=== PATIENT | female | born 1935 | race Caucasian/White ===

== ENCOUNTER 2016-09-10 09:56 | Emergency (ER) | payer OTHER ==
--- NOTE | ~2016-09-10 | CR72 ---
[facility]. [facility] A Service of [facility] & [facility] RADIOLOGY TEXT RESULTS PATIENT: NINA MAYES LOCATION: SED : 37 UNIT #: [id number] AGE: [address]: Zeina Harris MD SEX: F ORDER DR: [id number] [address] [address] [id number] MR#: [id number] Acc #: [id number] NAME: NINA MAYES : 1935 SEX: F STUDY DATE/TIME: 09/10/2016 10:07 UNIT: SED ROOM: STUDY DESCRIPTION: CR Chest Single View Portable Attending Physician: Zeina Harris M.D. Ordering Physician: Physician Non-Staff Primary Care Physician: Geo Li M.D. MEDICAL IMAGING REPORT This report is preliminary unless electronic signature is present. EXAM Portable chest INDICATIONS 72-year-old female with shortness of breath and cough for 2 days. COMPARISON: 07/18/16 FINDINGS There is decreased inspiratory volume with increased atelectasis in the lung bases. There are increased interstitial markings. Heart size is stable. Postoperative changes of the spine. IMPRESSION There are increased nonspecific interstitial markings bilaterally. This may be infectious or inflammatory or could be an interstitial edema. Please correlate clinically. Dictated by... Too Gauthier M.D. THIS IS AN ELECTRONICALLY VERIFIED REPORT Too Gauthier M.D. at 09/10/2016 11:53 AM DARINEL/chris TD: 09/10/2016 11:18 JOB #: [id number] MEDICAL IMAGING REPORT Page 1 of 1
--- NOTE | ~2016-09-10 | CT16 ---
[facility] A Service of [facility] & [facility] RADIOLOGY TEXT RESULTS PATIENT: NINA MAYES LOCATION: SED : 37 UNIT #: [id number] AGE: [address]: Zeina Harris MD SEX: F ORDER DR: [id number] [address] [address] [id number] MR#: [id number] Acc #: [id number] NAME: NINA MAYES : 1935 SEX: F STUDY DATE/TIME: 09/10/2016 UNIT: SED ROOM: STUDY DESCRIPTION: CT Angio Chest for PE Attending Physician: Zeina Harris M.D. Ordering Physician: Jarrett Not Listed Primary Care Physician: Geo Li M.D. MEDICAL IMAGING REPORT This report is preliminary unless electronic signature is present. EXAM CT angiogram of the chest for pulmonary embolism, 09/10/2016, 1135 hours. HISTORY 80-year-old woman with complaint of midsternal chest pain, short of air beginning last night. Coughing and head pressure today. COMPARISON Chest film, 09/10/2016. No prior CT scans. TECHNIQUE Dynamic, helical CT angiographic images were obtained from the thoracic inlet through the adrenal glands with contrast. 3-D sagittal and coronal reconstructions were performed. Contrast was Isovue-370, 100 mL IV. Total exam DLP 681 mGy-cm. This CT exam was performed with one or more of the following radiation dose reduction techniques: automatic exposure control, adjustment of mA and/or kV according to patient size, and iterative reconstruction. FINDINGS Images through the thoracic inlet demonstrate no definite thyroid nodule or supraclavicular adenopathy. Images through the chest demonstrate diagnostic quality opacification of the pulmonary arteries. The pulmonary arteries are normal in caliber. No filling defects are seen. The aorta is unopacified, but is normal in caliber with atherosclerotic calcifications present, and the coronary arteries and the aorta. There is no pericardial fluid. There is a subcarinal lymph node present, measuring 3.0 x 2.8 cm. There are small precarinal and right hilar nodes. These may be reactive. Lung window images demonstrate underlying interstitial change in the STS. [facility] A Service of [facility] & [facility] RADIOLOGY TEXT RESULTS PATIENT: NINA MAYES [place] [facility] [place] UNIT #: [id number] AGE: [address]: Zeina Harris MD SEX: F ORDER DR: periphery of the right upper lobe greater than left upper lobe. There is patchy airspace density inferiorly in the right upper lobe and in both lower lobes, raising question of underlying infection. There is mild peribronchiolar wall thickening in the left lower lobe greater than right lower lobe, with mild bronchiectasis. This could represent acute or chronic bronchitis. There is a dependent right pleural effusion felt likely reactive. Findings are concerning for multifocal infection such as bronchitis or bronchopneumonia. There is no dense airspace consolidation. There is elevation of the left hemidiaphragm with enlarged spleen. Limited views of the liver raise question of cirrhotic morphology, although not enough of the liver is imaged to determine full morphologic changes. IMPRESSION 1. No evidence of pulmonary embolism in normal caliber aorta. 2. There is a small dependent right pleural effusion with patchy reticulonodular changes in the right upper lobe, both lower lobes, and mild peribronchiolar wall thickening and mild bronchiectasis in the lower lobes. Findings suggest diffuse multifocal infection without dense airspace consolidation. 3. There are slightly prominent right hilar and precarinal lymph nodes with pathologically enlarged subcarinal node measuring 3.0 x 2.8 cm. These nodes are felt likely reactive, although follow-up chest CT in 3-4 months post treatment for pneumonia is recommended to reassess these nodes. 4. Images through the upper abdomen are limited. There is splenomegaly demonstrated. The liver is not imaged in its entirety. The visualized portion does raise question of cirrhotic morphology. Correlate with lab values and consider follow-up elective CT abdomen and pelvis. STAT * RESULT Dictated by... Maryam Marquez M.D. THIS IS AN ELECTRONICALLY VERIFIED REPORT Maryam Marquez M.D. at 09/10/2016 2:28 PM LORRIE/tr TD: 09/10/2016 12:09 JOB #: [id number] MEDICAL IMAGING REPORT Page 1 of 1
--- NOTE | ~2016-09-10 | EKG ---
PATIENT: NINA MAYES UNIT #: [id number] Ventricular Rate: 109 BPM Atrial Rate: 109 BPM P-R Interval: 128 ms QRS Duration: 92 ms Q-T Interval: 342 ms QTC Calculation(Bezet): 460 ms P [place]: 59 degrees Calculated R [place]: 13 degrees Calculated T [place]: 46 degrees Diagnosis Line: Sinus tachycardia with Possible Premature atrial Diagnosis Line: complexes with Aberrant conduction Diagnosis Line: Otherwise normal ECG Diagnosis Line: No previous ECGs available Diagnosis Line: Confirmed by NUNU ROBERT MD ([id number]) on 09/19/2016 Diagnosis Line: 7:57:17 PM INTERPRETING MD: YESICA ALVARADO
[~2016-09-10 09:56] MED LIST: ADVAIR 250-501 EAC1 INH; ALBUTEROL MININEB NEB; B/P MED; COREG PO; SINGULAIR
[2016-09-10 10:16] LABS: POC - CKMB 3.8 ng/mL (0.0-7.9); POC - MYOGLOBIN 60.3 ng/mL (0.0-169.0); POC - TROPONIN 0.1 ng/mL (<=0.05)
[2016-09-10 10:17] LABS: BASOPHIL% 0.4 % (0-2.5); EOSINOPHIL# 0.2 X10e3 (0-0.7); EOSINOPHIL% 2.9 % (0.0-7.0); HEMATOCRIT 34.7 % (35.0-45.0); HEMOGLOBIN 11.3 gm/dL (12.0-16.0); LYMPHOCYTE# 0.5 X10e3 (1.0-3.5); LYMPHOCYTE% 10.4 % (17.0-45.0); MEAN CELL VOLUME 79.7 FL (83-96); MEAN CORPUSCULAR HEMOGLOBIN 26.1 PG (28-34); MEAN CORPUSCULAR HGB CONC 32.7 g/dL (30-36); MEAN PLATELET VOLUME 8.9 FL (6.5-11.5); MONOCYTE# 0.2 X10e3 (0-1.0); MONOCYTE% 4.7 % (3.0-12.0); NEUTROPHIL# 4.2 X10e3 (1.5-7.1); NEUTROPHIL% 81.6 % (40-75); RED BLOOD COUNT 4.35 X10e (3.90-5.30); RED CELL DISTRIBUTION WIDTH 18.4 % (11.0-15.5); WHITE BLOOD COUNT 5.2 X10e3 (4.0-10.5)
[2016-09-10 10:27] LABS: ALBUMIN SERUM 3.6 g/dL (3.5-5.0); BILIRUBIN, DIRECT 0.3 mg/dL (0.0-0.2); BILIRUBIN,INDIRECT 1.3 mg/dL (0.0-0.9); BILIRUBIN,TOTAL 1.6 mg/dL (0.2-2.0); CALCIUM SERUM 8.6 mg/dL (8.4-10.2); CREATININE SERUM 0.5 mg/dL (0.6-1.4); GLOM FILT RATE Estimated 92.7 mL/min (>60); POTASSIUM 3.5 mmol/L (3.5-5.1); PROTEIN TOTAL SERUM 6.2 g/dL (6.0-8.3)
[2016-09-10 10:55] LABS: DIFF IND YES; PLATELET COUNT 97 X10e3 (140-420)
[2016-09-10 10:57] LABS: ANISOCYTOSIS MOD; PLATELET ESTIMATE DECREASED (NORMAL)
[2016-09-10 11:37] LABS: POC - CKMB 2.9 ng/mL (0.0-7.9); POC - MYOGLOBIN 41.5 ng/mL (0.0-169.0)
[2016-09-10 11:38] LABS: POC - TROPONIN 0.1 ng/mL (<=0.05)
[2016-09-10 11:44] LABS: INFLUENZA A NEG (NEG); INFLUENZA B NEG (NEG)
== END 2016-09-10 15:35 ==
LOC: SED 09:56
PROVIDERS: Emergency Medicine
DX: J84.9 Interstitial pulmonary disease, unspecified (principal); J44.9 Chronic obstructive pulmonary disease, unspecified; Z79.899 Other long term (current) drug therapy
CPT/HCPCS: 36415; 71010; 71275; 80048; 80076; 82553; 83874; 83880; 84484; 85025; 87040; 87804; 93005; 94640; 96374; 99285; J0696; Q9967